=== PATIENT | female | born 1995 | race Two or more races ===

== ENCOUNTER 2025-04-10 09:21 | Emergency (ER) | payer OTHER ==
[~2025-04-10] VITALS: Ht 172.7 cm; Wt 141.1 kg
[2025-04-10] MEDS: IV NS 0.9% 1,000 ML BAG IV ONE (09:30)
[2025-04-10 09:45] VITALS: TEMP 98.4
[2025-04-10 09:57] LABS: BASOPHILS % (AUTO) 0.3 % (0.0-2.0); EOSINOPHILS # (AUTO) 0.1 K/uL (0.0-0.7); EOSINOPHILS % (AUTO) 1.5 % (0.0-6.0); HEMATOCRIT 41 % (33-45); HEMOGLOBIN 13.3 g/dL (11.5-14.8); LYMPHOCYTES # (AUTO) 2.3 K/uL (0.8-4.8); LYMPHOCYTES % (AUTO) 29.7 % (20.0-44.0); MEAN CORPUSCULAR HEMOGLOBIN 29 PG (26.0-33.0); MEAN CORPUSCULAR HGB CONC 33 g/dl (31.0-36.0); MEAN CORPUSCULAR VOLUME 88 fL (82-100); MONOCYTES # (AUTO) 0.5 K/uL (0.1-1.30); MONOCYTES % (AUTO) 6.2 % (2.0-12.0); NEUTROPHILS # (AUTO) 4.9 K/uL (1.8-8.9); NEUTROPHILS % (AUTO) 62.3 % (43.0-81.0); PLATELET COUNT (AUTO) 306 K/uL (150-450); RED BLOOD CELL COUNT(AUTO) 4.61 MIL/uL (4.0-5.2); RED CELL DISTRIBUTION WIDTH 15.2 % (11.5-15.0); WHITE BLOOD COUNT (AUTO) 7.8 K/uL (4.3-11.0)
[2025-04-10 10:11] LABS: CALCIUM, SERUM 8.6 mg/dL (8.5-10.1); CREATININE 0.6 mg/dL (0.6-1.3); POTASSIUM 3.7 mmol/L (3.5-5.1)
[2025-04-10 10:21] LABS: ALBUMIN 3.9 g/dL (3.4-5.0); BILIRUBIN,TOTAL 0.5 mg/dL (0.2-1.0); TOTAL PROTEIN, SERUM 7.8 g/dL (6.4-8.2)
[2025-04-10 10:36] LABS: APPEARANCE,URINE BLOODY (CLEAR); COLOR,URINE RED (YELLOW)
[2025-04-10 10:37] LABS: RBC,URINE TOO NUMEROUS TO COUN /HPF (0-2); WBC,URINE 0-2 /HPF (0-3)
[2025-04-10 10:38] LABS: BACTERIA,URINE None seen /HPF (None Seen); SQUAMOUS EPITHELIAL CELL,UR 0-2 /HPF (None Seen)
[2025-04-10] MEDS ORDERED: METR500T PO (10:45)
[2025-04-10] MEDS ORDERED: CEPH-570 PO (10:45)
[2025-04-10 11:10] LABS: BILIRUBIN,DIRECT 0.1 mg/dL (0.0-0.2)
[2025-04-10] MEDS ORDERED: HYDROCODONE/APAP 5/325MG TABLET ONE (12:00)
[2025-04-10] MEDS: HYDROCODONE/APAP 5/325MG TABLET PO ONE (12:00)
[2025-04-10 12:12] VITALS: BP 128/80; O2SAT 99
== END 2025-04-10 12:10 | disposition home or self-care (01) ==
LOC: ER 09:27
DX: O03.4 Incomplete spontaneous abortion without complication (principal); R10.2 Pelvic and perineal pain; Z3A.13 13 weeks gestation of pregnancy
CPT/HCPCS: 99284; 96360; 76856; 85025; 80048; 80076; 81001; 36415; 86850; 84702; J7030

== ENCOUNTER 2025-08-07 00:16 | Emergency (ER) | payer OTHER ==
[~2025-08-07] VITALS: Ht 172.7 cm; Wt 127.0 kg
[~2025-08-07 00:16] MED LIST: CEPH-570 PO; METR500T PO
[2025-08-07] MEDS ORDERED: IBUPROFEN 400 MG TABLET ONE (01:43)
[2025-08-07] MEDS: IBUPROFEN 400 MG TABLET PO ONE (01:47)
[2025-08-07 02:39] LABS: PREGNANCY TEST URINE QUAL NEGATIVE (NEGATIVE)
[2025-08-07 05:56] VITALS: BP 134/80; TEMP 98.1; O2SAT 99
== END 2025-08-07 05:57 | disposition home or self-care (01) ==
LOC: ER 00:21
DX: S93.602A Unspecified sprain of left foot, initial encounter (principal); R51.9 Headache, unspecified; E66.01 Morbid (severe) obesity due to excess calories; Z68.41 Body mass index [BMI] 40.0-44.9, adult; V89.2XXA Person injured in unspecified motor-vehicle accident, traffic, initial encounter; Y93.89 Activity, other specified; Y92.89 Other specified places as the place of occurrence of the external cause; Y99.8 Other external cause status
CPT/HCPCS: 70450-TC; 70486-TC; 73630-TC; 84703-TC